=== PATIENT | female | born 1985 | race Caucasian/White ===

== ENCOUNTER 2021-12-10 10:52 | Outpatient (CLI) | payer OTHER ==
[2021-12-10 11:45] VITALS: BP 112/70
--- NOTE | 2021-12-10 11:45 | SLEEP CARE CONSULTATION ---
Information from patient questionnaire entered by Isela Browning. I have reviewed and concur with the information entered by Isela Browning. This document represents the service I personally performed and the decisions made by me, Xiomara Beckwith ARNP. History of Present Illness Service Date and Time: 12/10/2021 1052 Reason for Visit: New patient Chief Complaint: reports: Unrefreshed sleep, Snoring, Excessive daytime sleepiness, Fatigue, Frequent awakenings at night Date of Onset: 6yrs Usual bedtime: 930pm Time it takes to fall asleep: about an hr Snores at night: Yes Observed to quit breathing while asleep: No Sleeps alone due to snoring: No Number of times waking at night: 3 Reasons for waking at night: reports: Other (unknown, and during the work week I wake up if I think I am sleeping to well afraid of sleeping through alarm). denies: Choking, Gasping for air Toss, Turn, or Twitch while sleeping: Yes Recalls having dreams: No (did when younger but not now) Usually gets out of bed at: 545am; weekends 9-10 am Feels refreshed in the morning: No Morning headache: No Sleepy or fatigued during the day: Yes Ever fallen asleep while driving: No Takes day naps: Yes (3 times a week for about an hour or more) Dreams during day naps: No Prior sleep studies: No Additional HPI information: I had the pleasure of seeing PARVIN MAN today regarding the possibility of her having a sleep disorder. Her current complaints are excessive daytime sleepiness, fatigue, frequent night awakenings, snoring and unrefreshed sleep. She states she was referred by her doctor because she is always tired. She has been snoring as told by people on the ship. She has not been told she has pauses in breathing when sleeping. She states she does not wake feeling rested in the morning. - Parasomnia Symptoms Ever been unable to move upon waking from sleep: No Walks in sleep: No Talks in sleep: No Ever acted out dreams in sleep: No Ever felt weak in the knees when startled or emotional: No Bothered by creepy, crawly, restless sensations in legs: No Problems with memory or concentration: Yes (both, more memory than concentration) Subjective Initial Emerado Sleepiness Scale score: 15 (12/10/2021) Past Medical History Past Medical History: reports: Other (double jaw surgery to correct teeth alignment 2018) Social History The patient's occupation is a AM. Patient is Single and lives in . Have you smoked in the past 12 months: No Cigarettes per day (20/pack): 10 Years of smokin Quit date: 2016 Smoking Pack Years: 4.0 Alcohol use: Yes Alcohol amount and frequency: 3-4 drinks weekly Caffeine use: Yes Caffeine amount and frequency: 6 cups daily Family History Family history of sleep disordered breathing: Yes Family Hx Sleep Apnea: Mother: Snoring, Father: Snoring, Sibling: Snoring Allergies and Home Medications Known drug allergies: Yes (sulfas) Drug allergies reviewed: Yes (sulfa medication - rash all over) Home medication list reviewed: Yes Allergy and home medication list: Medication: Bupropion, to help her lose weight Multivitamin Review of Systems Weight gain over past 5 years: 20 Cardiovascular: denies: high blood pressure Gastrointestinal: denies: heartburn Neurological: denies: headaches Psychiatric: denies: anxiety, depression Ear/Nose/Throat: reports: wisdom teeth removed. denies: tonsillectomy Endocrine: reports: sluggishness, excessive thirst Immunologic: denies: allergies to food or environment Physical Exam Vital signs obtained and entered by: ISELA Meneses MA Blood Pressure: 112/70 (left arm) Cuff size: regular Heart Rate: 90 O2 Saturation: 96 Height: 5 ft 7 in Weight: 202 lb 12.8 oz Body Mass Index: 31.7 BMI Classification: Obese Neck circumference: 14 (inches) Mouth and throat: narrow oropharynx Soft palate: normal Hard palate: normal Uvula: long Uvula visualization: 25% Mallampati Class III Tongue: enlarged in size with teeth shipman on lateral edges Tonsils: 1+ Neck: normal w/o lymphadenopathy or thyromegaly Heart: regular rate and rhythm Lungs: clear bilaterally Impression and Plan 1. Suspected Obstructive Sleep Apnea-Hypopnea Syndrome, as suggested by a history of loud and irregular snoring, frequent awakening during the night, unrefreshed sleep, cognitive impairment, and excessive daytime sleepiness. 'Narrow oropharynx and obesity are common predisposing factors for obstructive sleep apnea-hypopnea syndrome. I recommend proceeding to polysomnography to confirm the diagnosis and to assess severity. If the patient has significant sleep disordered breathing, a manual CPAP titration study will also be performed to find the optimal treatment pressure. I informed the patient of what the sleep studies involve and after some discussion, obtained agreement to proceed. The pathophysiology of obstructive sleep apnea-hypopnea syndrome was discussed with the patient and health risks of cardiovascular and cerebrovascular disease if not treated. Risks of drowsy driving discussed in detail and patient advised to avoid long distance driving and to gut puller at the first sign of drowsiness. Patient agreed to plan. * Schedule polysomnography * Avoid long distance driving or driving when feeling sleepy. * Avoid alcohol, sedative and muscle relaxant around bedtime. * Attempt to lose weight. * Review instructions provided by trained office staff on how to prepare for the sleep study. * Return for follow-up after sleep study completed. Counseling Topics: Weight loss health impact Visit Type: In Office Time Spent with Patient (minutes): 30 Provider Statement: I spent 100% of the Face to Face Visit with the patient with greater than 50% spent counseling the patient and coordination of care.
== END 2021-12-10 10:53 | disposition home or self-care (01) ==
LOC: SC 10:52
PROVIDERS: ATTEND Nurse Practitioner Family
DX: R06.83 Snoring (principal); G47.8 Other sleep disorders; R41.89 Other symptoms and signs involving cognitive functions and awareness; G47.10 Hypersomnia, unspecified; E66.9 Obesity, unspecified; Z68.31 Body mass index [BMI] 31.0-31.9, adult
CPT/HCPCS: 99203; 99212

== ENCOUNTER 2021-12-27 19:20 | Outpatient (CLI) | payer OTHER | END 2021-12-27 19:21 | disposition home or self-care (01) | LOC: SC 19:20 | PROVIDERS: ATTEND Nurse Practitioner Family | DX: R06.83 Snoring (principal); G47.8 Other sleep disorders; G47.10 Hypersomnia, unspecified; R53.83 Other fatigue | CPT/HCPCS: 95810 ==